=== PATIENT | male | born 1995 | race Caucasian/White ===

== ENCOUNTER 2022-10-14 05:59 | Emergency (ER) | payer OTHER ==
[~2022-10-14] VITALS: Ht 177.8 cm; Wt 66.4 kg
[2022-10-14 07:22] VITALS: BP 139/82; PULSE 81; RESP 16; TEMP 98; O2SAT 97
== END 2022-10-14 07:46 | disposition home or self-care (01) ==
LOC: ER 05:59
DX: J02.8 Acute pharyngitis due to other specified organisms (principal); B97.89 Other viral agents as the cause of diseases classified elsewhere